=== PATIENT | female | born 1970 | race Caucasian/White ===

== ENCOUNTER → 2019-03-27 13:52 | Outpatient (CLI) | payer OTHER, SELFPAY ==
--- NOTE | 2019-03-27 | DI.CT.S_ITS ---
PROCEDURE: CT ABDOMEN PELVIS WO CON INDICATIONS: Left lower abdominal pain TECHNIQUE: After the administration of oral contrast, 5 mm thick sections acquired from the diaphragms to the symphysis. 5 mm coronal and sagittal reformats were performed. For radiation dose reduction, the following was used: automated exposure control, adjustment of mA and/or kV according to patient size. COMPARISON: None. FINDINGS: Image quality: Excellent. ABDOMEN: Lung bases: Lung bases are clear. Heart size is normal. Solid organs: Noncontrast evaluation of the liver demonstrates no focal hepatic lesions. Gallbladder appears within normal limits without calcified gallstones. Pancreas is normal in contours without peripancreatic fat stranding or fluid collections. Spleen is normal in size. No adrenal nodules. Kidneys demonstrate no hydronephrosis. There is a small focus of cortical calcification medially in the left kidney measuring up to approximately 5 mm which may represent a nonobstructing stone or dystrophic calcification. Peritoneum and bowel: Small bowel loops demonstrate normal wall thickness and caliber. There is colonic diverticulosis. There is minimal associated peridiverticular inflammatory fat stranding along the distal descending colon with trace fluid in the left paracolic gutter. Findings are compatible with mild diverticulitis. No associated loculated fluid collection or macroscopic free air. Minimal free fluid is also demonstrated within the pelvis which appears within physiologic limits. Nodes and vessels: No retroperitoneal or mesenteric adenopathy by size criteria. Aorta and inferior vena cava are normal in size. Miscellaneous: No ventral hernias. PELVIS: Genitourinary: The urinary bladder is nondistended. The uterus and ovaries appear within normal size limits for age. There's a small amount of endometrial fluid which appears within physiologic limits. Miscellaneous: No inguinal hernias or adenopathy. Bones: No suspicious bony lesions. No vertebral body compression fractures. IMPRESSION: 1. Mild diverticulitis of the distal descending colon. No evidence of diverticular abscess or macroscopic free air. Findings discussed with Dr. Sheppard on 03/27/19 at 4:10 PM. 2. Small focus of calcification in the left kidney consistent with a nonobstructing stone or dystrophic cortical calcification. Dictated by: Maciel Fernandez M.D. on 03/27/2019 at 16:08 Approved by: Maciel Fernandez M.D. on 03/27/2019 at 16:13
[2019-03-27 14:17] LABS: Add Manual Diff / Slide Review NO; Basophils Absolute Auto 100 /uL (0-100); Basophils Percent Auto 0.8 % (0-2); Eosinophils Absolute Auto 0 /uL (0-450); Eosinophils Percent Auto 0.2 % (2-4); Hematocrit 38.3 % (36-46); Hemoglobin 12.6 g/dL (12.0-16.0); Lymphocytes Absolute Auto 1100 /uL (1100-4500); Lymphocytes Percent Auto 10.4 % (25-40); Mean Corpuscular HGB Conc 32.9 % (30-36); Mean Corpuscular Hemoglobin 29.2 PG (26-34); Mean Corpuscular Volume 88.6 fL (80-100); Monocytes Absolute Auto 600 /uL (0-900); Monocytes Percent Auto 5.8 % (3-14); Neutrophils Absolute Auto 8800 /uL (1500-7000); Neutrophils Percent Auto 82.8 % (50-75); Platelet Count 249 X10^3/uL (150-400); Red Blood Cell Count 4.32 X10^6/uL (4.0-5.2); Red Cell Distribution Width 16.2 % (11.6-14.8); White Blood Cell Count 10.6 X10^3/uL (4.5-11.0)
== END ==
PROVIDERS: PCP Family Medicine; Visit Provider Family Medicine
DX: R10.32 Left lower quadrant pain (principal); K57.32 Diverticulitis of large intestine without perforation or abscess without bleeding; N20.0 Calculus of kidney
CPT/HCPCS: 36415; 74176; 85025

== ENCOUNTER 2019-06-27 17:49 | Emergency (ER) | payer OTHER, SELFPAY ==
[2019-06-27 17:52] VITALS: BP 132/75; PULSE 91; RESP 16; TEMP 37.2; O2SAT 96; BMI 19.1
[2019-06-27 18:27] LABS: Add Manual Diff / Slide Review NO; Basophils Absolute Auto 100 /uL (0-100); Basophils Percent Auto 1.3 % (0-2); Eosinophils Absolute Auto 100 /uL (0-450); Eosinophils Percent Auto 1.1 % (2-4); Hematocrit 38.7 % (36-46); Hemoglobin 12.7 g/dL (12.0-16.0); Lymphocytes Absolute Auto 1800 /uL (1100-4500); Lymphocytes Percent Auto 23.3 % (25-40); Mean Corpuscular HGB Conc 32.9 % (30-36); Mean Corpuscular Hemoglobin 30.5 PG (26-34); Mean Corpuscular Volume 92.5 fL (80-100); Monocytes Absolute Auto 700 /uL (0-900); Monocytes Percent Auto 9.1 % (3-14); Neutrophils Absolute Auto 5000 /uL (1500-7000); Neutrophils Percent Auto 65.2 % (50-75); Platelet Count 243 X10^3/uL (150-400); Red Blood Cell Count 4.18 X10^6/uL (4.0-5.2); Red Cell Distribution Width 16.4 % (11.6-14.8); White Blood Cell Count 7.6 X10^3/uL (4.5-11.0)
--- NOTE | 2019-06-27 18:28 | ED_ITS ---
HPI - Weakness <MICHELL Manzo - Last Filed: 06/27/19 21:45> General Chief complaint: Weakness Stated complaint: shakey, dizzy, said heavy period Time Seen by Provider: 06/27/19 18:02 Source: patient Mode of arrival: Ambulatory History of Present Illness HPI Narrative: 48 year old female with a presents to the emergency department complaining of weakness and shaking after being sick for a month. Patient st ates she originally developed fatigue about 3-4 weeks ago, developed a dry cough orally, and started to feel better but then started her menstruation. Which she thinks ?worsened my immune system ?. She states she started her period about 10 days ago, bleeding only lasted for 6 days. She did have heavy bleeding the 1st 1-2 days. She states at 1 point she saturated a tampon after 20 minutes, this only happened once, she has had no bleeding at all for the past 2-3 days. She states this is very usual for her menstruation cycle, occasionally she has heavier periods intermittently. Patient noticed that this week she felt like her heart was beating rapidly. She states today she is feeling much better but wanted to be checked out to be sure. She states last week she started taking iron which has helped. She denies any fevers, chest pain, shortness of breath, syncope, or dizziness. She states she was dizzy in the past but the past few days she has felt better. She denies any abdominal pain, nausea, vomiting, diarrhea, or any other concerns. Patient states ?I would not like a chest x-ray due to the risk of radiation. Related Data Allergies Allergy/AdvReac Type Severity Reaction Status Date / Time UNKNOWN SPINAL ANETHETIC Allergy Unknown Uncoded 06/27/19 18:07 Review of Systems <MICHELL Manzo - Last Filed: 06/27/19 21:45> Review of Systems Narrative: REVIEW OF SYSTEMS: GENERAL: Denies fever or chills. HENT: No head trauma, hearing loss or sore throat. EYES: No loss of vision, double vision, eye pain, or irritation. CARDIOVASCULAR: Complains of heart palpitations, see HPI. RESPIRATORY: No shortness of breath. Of cough, see HPI GASTROINTESTINAL: No vomiting, diarrhea, or constipation. GENITOURINARY: No flank pain or dysuria. MUSCULOSKELETAL: No injuries. INTEGUMENTARY: No rash, lesions, or pruritus. NEURO: No numbness, tingling, memory loss, or confusion. PSYCH: No behavior or mood changes. Patient History <Johnna Dickinson CLASSIFYING MACHINE OPERATOR - Last Filed: 06/27/19 21:45> Social History Smoking Status: Never smoker Smoking Status: Never smoker Alcohol type: wine Substance Use Type: does not use Exam <MICHELL Manzo - Last Filed: 06/27/19 21:45> Initial Vital Signs Initial Vital Signs: Vital Signs Temperature 98.9 F 06/27/19 17:52 Pulse Rate 91 H 06/27/19 17:52 Respiratory Rate 16 06/27/19 17:52 Blood Pressure 132/75 06/27/19 17:52 Pulse Oximetry 96 06/27/19 17:52 PHYSICAL EXAMINATION: GENERAL: Well groomed, alert, and cooperative. Answers questions promptly and appropriately. Vital signs noted. HENT: Normocephalic, atraumatic. Ear canals patent. Oral mucosa is pink and moist. EYES: Conjunctiva pink, sclera white, no periorbital swelling. CHEST: Normal to inspection and without deformities. CARDIOVASCULAR: S1 and S2 sounds normal. Regular rate and rhythm, no murmurs, clicks, or bruits. No pedal edema. RESPIRATORY: Normal respiratory rate, trachea midline, airway patent. No stridor, nasal flaring or accessory muscle use. Lungs are clear in all maaya without wheeze, rhonchi, or crackles. Occasional dry cough noted throughout examination GASTROINTESTINAL: Bowel sounds normoactive. Abdomen is soft and non-tender. No organomegaly. MUSCULOSKELETAL: Normal gait and coordination. Equal tone and mass bilaterally. EXTREMITIES: CMS intact. Moves all extremities. SKIN: Warm, dry, soft, appropriate color for ethnicity. No lesions, rashes, or wounds. NEURO: Alert and Oriented X 3. Good coordination. No ataxia, or sensory deficits, or cognitive issues. PSYCH: Appropriate affect and mood. <Raffy Taylor MD - Last Filed: 06/28/19 02:34> Initial Vital Signs Initial Vital Signs: Vital Signs Temperature 98.9 F 06/27/19 17:52 Pulse Rate 91 H 06/27/19 17:52 Respiratory Rate 16 06/27/19 17:52 Blood Pressure 132/75 06/27/19 17:52 Pulse Oximetry 96 06/27/19 17:52 Course <MICHELL Manzo - Last Filed: 06/27/19 21:45> Course Course Narrative: Patient declined chest x-ray. Patient states she was feeling better after administration of fluids. Orders Ordered: ED Orders 06/27/19 18:20 Complete Blood Count AUTO DIFF Stat Comprehensive Metabolic Panel Stat Troponin & CK Cardiac Panel Stat 06/27/19 18:27 EKG-12 Lead Stat Discontinued Medications Sodium Chloride (Normal Saline 0.9%) 1,000 mls @ 1,000 mls/hr IV BOLUS ONE Stop: 06/27/19 19:27 Last Infusion: 06/27/19 20:16 Dose: 0 mls/hr Documented by: Admin: 06/27/19 19:01 Dose: 1,000 mls/hr Documented by: RYAN Consultations Consultation #1: Patient staffed with Dr. Taylor, discussed history, tests, and results. Patient DCed with follow-up. Vital Signs Vital signs: Vital Signs - 8 hr 06/27/19 17:52 Temperature 98.9 F Pulse Rate 91 H Respiratory Rate 16 Blood Pressure 132/75 Pulse Oximetry 96 <Raffy Taylor MD - Last Filed: 06/28/19 02:34> Orders Ordered: ED Orders 06/27/19 18:20 Complete Blood Count AUTO DIFF Stat Comprehensive Metabolic Panel Stat Troponin & CK Cardiac Panel Stat 06/27/19 18:27 EKG-12 Lead Stat Discontinued Medications Sodium Chloride (Normal Saline 0.9%) 1,000 mls @ 1,000 mls/hr IV BOLUS ONE Stop: 06/27/19 19:27 Last Infusion: 06/27/19 20:16 Dose: 0 mls/hr Documented by: Admin: 06/27/19 19:01 Dose: 1,000 mls/hr Documented by: RYAN Vital Signs Vital signs: Vital Signs - 8 hr 06/27/19 17:52 Temperature 98.9 F Pulse Rate 91 H Respiratory Rate 16 Blood Pressure 132/75 Pulse Oximetry 96 MDM - Weakness <MICHELL Manzo - Last Filed: 06/27/19 21:45> Medical Records Attestation: I reviewed the patient's medical records. Lab Data Attestation: I reviewed the patient's lab results. Result diagrams: 06/27/19 18:20 06/27/19 18:20 Labs: Lab Results 06/27/19 06/27/19 06/27/19 Range/Units 18:20 18:20 18:20 WBC 7.6 (4.5-11.0) X10^3/uL RBC 4.18 (4.0-5.2) X10^6/uL Hgb 12.7 (12.0-16.0) g/dL Hct 38.7 (36-46) % MCV 92.5 (80-100) fL MCH 30.5 (26-34) PG MCHC 32.9 (30-36) % RDW 16.4 H (11.6-14.8) % Plt Count 243 (150-400) X10^3/uL Neut % (Auto) 65.2 (50-75) % Lymph % (Auto) 23.3 L (25-40) % [place] % (Auto) 9.1 (3-14) % Eos % (Auto) 1.1 L (2-4) % Baso % (Auto) 1.3 (0-2) % Neut # (Auto) 5000 (1095-4284) /uL Lymph # (Auto) 1800 (1453-7618) /uL [place] # (Auto) 700 (0-900) /uL Eos # (Auto) 100 (0-450) /uL Baso # (Auto) 100 (0-100) /uL Sodium 139 (137-145) mmol/L Potassium 3.7 (3.4-5.1) mmol/L Chloride 101 (98-107) mmol/L Carbon Dioxide 29 (22-32) mmol/L BUN 11 (7-17) mg/dL Creatinine 0.51 L (0.52-1.04) mg/dL Estimated GFR > 60.0 (>60) mL/min BUN/Creatinine Ratio 21.6 (6-22) Glucose 110 H (70-100) mg/dL Calcium 10.0 (8.4-10.2) mg/dL Total Bilirubin 0.3 (0.2-1.3) mg/dL AST 23 (14-36) IU/L ALT 12 (<35) IU/L Alkaline Phosphatase 58 (38-126) U/L Total Creatine Kinase 21 L (30-135) U/L CK-MB (CK-2) TNP CK-MB (CK-2) Rel Index TNP Troponin I < 0.012 (0.01-0.034) ng/mL Total Protein 7.8 (6.3-8.2) g/dL Albumin 4.9 (3.5-5.0) g/dL Globulin 2.9 (1.7-4.1) g/dL Albumin/Globulin Ratio 1.7 (1.0-2.8) Point of Care Testing Test Results Negative Urine Dip Bedside Urine Glucose Negative Bedside Urine Bilirubin - Negative Bedside Urine Ketone - Negative Urine Specific [place] 1.015 Bedside Urine Occult Blood - Negative Bedside Urine pH 6.2 Bedside Urine Protein - Negative Bedside Urine Urobilinogen - Negative Bedside Urine Nitrite - Negative Bedside Urine Leukocytes - Negative Esterase ECG Data Interpretation: Normal sinus rhythm, rate 74, MA interval 162, QTC 396. No ST elevation or ST depression. No T-wave abnormality. No ectopy. EKG was also v iewed by Dr. Taylor. [facility] Narrative Medical decision making narrative: 48yo female with a history of anemia and heavy menstrual bleeding presenting to the ED for weakness, shaking, and palpitation after being sick for about a month. Patient also reports she had a heavy menstrual cycle last week which has ended a few days without. Patient states she is feeling much better today but wanted to be checked out. I am unsu re the exact cause of her symptoms, I suspect this is most likely due to previous illness and her body recuperating. She may also be dehydrated causing which she feels as palpitations or increased heart rate with exertion. However, EKG is within normal limits without arrhythmia, patient was monitored throughout the emergency department stay and no arrhythmia was seen on the monitors. Troponin is negative, withdrawal eats are within normal limits, and patient's hematocrit and hemoglobin are non-remarkable. No indication of infection as wbc's are within normal limits and urine is non-remarkable. Due to cough, I a attempted to get a chest x-ray. Patient declined at this time to reduce rad iation exposure, I feel like this is appropriate as her lung exam was benign without crackles or wheezes. Patient did states she felt better after rehydration with normal saline. She was encouraged to continue drinking fluids and taking her iron as prescribed. Follow-up was encouraged in the next week. Strict ED return precautions were given. Patient agreed to plan of care verbalized understanding. <Raffy Taylor MD - Last Filed: 06/28/19 02:34> Lab Data Labs: Lab Results 06/27/19 06/27/19 06/27/19 Range/Units 18:20 18:20 18:20 WBC 7.6 (4.5-11.0) X10^3/uL RBC 4.18 (4.0-5.2) X10^6/uL Hgb 12.7 (12.0-16.0) g/dL Hct 38.7 (36-46) % MCV 92.5 (80-100) fL MCH 30.5 (26-34) PG MCHC 32.9 (30-36) % RDW 16.4 H (11.6-14.8) % Plt Count 243 (150-400) X10^3/uL Neut % (Auto) 65.2 (50-75) % Lymph % (Auto) 23.3 L (25-40) % [place] % (Auto) 9.1 (3-14) % Eos % (Auto) 1.1 L (2-4) % Baso % (Auto) 1.3 (0-2) % Neut # (Auto) 5000 (2942-1268) /uL Lymph # (Auto) 1800 (1309-1760) /uL [place] # (Auto) 700 (0-900) /uL Eos # (Auto) 100 (0-450) /uL Baso # (Auto) 100 (0-100) /uL Sodium 139 (137-145) mmol/L Potassium 3.7 (3.4-5.1) mmol/L Chloride 101 (98-107) mmol/L Carbon Dioxide 29 (22-32) mmol/L BUN 11 (7-17) mg/dL Creatinine 0.51 L (0.52-1.04) mg/dL Estimated GFR > 60.0 (>60) mL/min BUN/Creatinine Ratio 21.6 (6-22) Glucose 110 H (70-100) mg/dL Calcium 10.0 (8.4-10.2) mg/dL Total Bilirubin 0.3 (0.2-1.3) mg/dL AST 23 (14-36) IU/L ALT 12 (<35) IU/L Alkaline Phosphatase 58 (38-126) U/L Total Creatine Kinase 21 L (30-135) U/L CK-MB (CK-2) TNP CK-MB (CK-2) Rel Index TNP Troponin I < 0.012 (0.01-0.034) ng/mL Total Protein 7.8 (6.3-8.2) g/dL Albumin 4.9 (3.5-5.0) g/dL Globulin 2.9 (1.7-4.1) g/dL Albumin/Globulin Ratio 1.7 (1.0-2.8) Point of Care Testing Test Results Negative Urine Dip Bedside Urine Glucose Negative Bedside Urine Bilirubin - Negative Bedside Urine Ketone - Negative Urine Specific [place] 1.015 Bedside Urine Occult Blood - Negative Bedside Urine pH 6.2 Bedside Urine Protein - Negative Bedside Urine Urobilinogen - Negative Bedside Urine Nitrite - Negative Bedside Urine Leukocytes - Negative Esterase Discharge Plan Departure Patient Disposition: Home Clinical Impression: Heart palpitations Discharge Date/Time: 06/27/19 20:17 Instructions: DI for Dehydration -- Adult Referrals: Nohemi Sheppard MD [Primary Care Provider] -
[2019-06-27 18:38] LABS: Alanine Aminotransferase 12 IU/L (<35); Albumin 4.9 g/dL (3.5-5.0); Albumin Globulin Ratio 1.7 (1.0-2.8); Alkaline Phosphatase 58 U/L (38-126); Aspartate Aminotransferase 23 IU/L (14-36); BUN Creatinine Ratio 21.6 (6-22); Bilirubin Total 0.3 mg/dL (0.2-1.3); Blood Urea Nitrogen 11 mg/dL (7-17); Carbon Dioxide 29 mmol/L (22-32); Chloride 101 mmol/L (98-107); Estimated Glomerular Filt Rate > 60.0 mL/min (>60); Globulin 2.9 g/dL (1.7-4.1); Glucose 110 mg/dL (70-100); HEMOLYSIS < 15 (0-50); Potassium 3.7 mmol/L (3.4-5.1); Sodium 139 mmol/L (137-145); Total Protein 7.8 g/dL (6.3-8.2)
[2019-06-27 18:45] LABS: Creatine Kinase 21 U/L (30-135)
[2019-06-27 18:58] LABS: Troponin I < 0.012 ng/mL (0.01-0.034)
[2019-06-27] MEDS: SODIUM CHLORIDE 0.9% 1,000 ML 1000 ML IV (19:01)
== END 2019-06-27 20:17 | disposition home or self-care (01) ==
PROVIDERS: Emergency Provider Nurse Practitioner; PCP Family Medicine
DX: R00.2 Palpitations (principal); D64.9 Anemia, unspecified; N92.0 Excessive and frequent menstruation with regular cycle; R05 Cough
CPT/HCPCS: 36415; 80053; 81003; 81025; 82550; 84484; 85025; 93005; 96360; 99284

== ENCOUNTER → 2023-05-31 16:40 | Outpatient (CLI) | payer OTHER, SELFPAY ==
[2023-05-31 17:24] LABS: Add Manual Diff / Slide Review NO; Basophils Absolute Auto 100 /uL (0-100); Basophils Percent Auto 2.4 % (0-2); Eosinophils Absolute Auto 100 /uL (0-450); Eosinophils Percent Auto 1.8 % (2-4); Hematocrit 37.3 % (36-46); Hemoglobin 12.8 g/dL (12.0-16.0); Lymphocytes Absolute Auto 1800 /uL (1100-4500); Lymphocytes Percent Auto 32.5 % (25-40); Mean Corpuscular HGB Conc 34.2 % (30-36); Mean Corpuscular Hemoglobin 32.6 PG (26-34); Mean Corpuscular Volume 95.4 fL (80-100); Monocytes Absolute Auto 600 /uL (0-900); Monocytes Percent Auto 10.9 % (3-14); Neutrophils Absolute Auto 2800 /uL (1500-7000); Neutrophils Percent Auto 52.4 % (50-75); Platelet Count 214 X10^3/uL (150-400); Red Blood Cell Count 3.91 X10^6/uL (4.0-5.2); White Blood Cell Count 5.4 X10^3/uL (4.5-11.0)
[2023-05-31 17:25] LABS: HEMOLYSIS < 15 (0-50); Iron 108 ug/dL (37-170)
[2023-05-31 17:27] LABS: Alanine Aminotransferase 16 IU/L (<35); Albumin 4.3 g/dL (3.5-5.0); Albumin Globulin Ratio 1.5 (1.0-2.8); Alkaline Phosphatase 59 U/L (38-126); Aspartate Aminotransferase 26 IU/L (14-36); Bilirubin Total 0.4 mg/dL (0.2-1.3); Blood Urea Nitrogen 6 mg/dL (7-17); Calcium 9.2 mg/dL (8.4-10.2); Carbon Dioxide 29 mmol/L (22-32); Chloride 106 mmol/L (98-107); Estimated Glomerular Filt Rate > 60 mL/min (>60); Globulin 2.8 g/dL (1.7-4.1); Glucose 94 mg/dL (70-100); HEMOLYSIS < 15 (0-50); Potassium 3.9 mmol/L (3.4-5.1); Sodium 138 mmol/L (137-145); Total Protein 7.1 g/dL (6.3-8.2)
[2023-05-31 17:29] LABS: Hemoglobin A1C% w Est Avg Glu 5.1 % (4.0-6.0)
[2023-05-31 17:35] LABS: Percent Iron Saturation 38 % (15-50); Total Iron Binding Capacity 286 ug/dL (265-497); Transferrin 247 mg/dL (206-381)
[2023-05-31 17:44] LABS: Vitamin D 25 Hydroxy (D3) 46.2 ng/mL (30.0-100.0)
[2023-05-31 17:58] LABS: TSH w/ Reflex to FT4 0.89 uIU/mL (0.47-4.68)
[2023-05-31 18:01] LABS: Ferritin 12 ng/mL (11-264)
[2023-05-31 18:15] LABS: Vitamin B12 719 pg/mL (239-931)
[2023-06-05 19:47] LABS: Vitamin B6 33.5 ug/L (3.4-65.2)
== END ==
PROVIDERS: PCP Family Medicine; Referring Provider Family Medicine; Visit Provider Family Medicine
DX: R20.2 Paresthesia of skin (principal); D64.9 Anemia, unspecified; E53.1 Pyridoxine deficiency; E55.9 Vitamin D deficiency, unspecified; R63.4 Abnormal weight loss
CPT/HCPCS: 36415; 80053; 82306; 82607; 82728; 83036; 83540; 83550; 84207; 84443; 85025

== ENCOUNTER 2023-06-13 03:32 | Emergency (ER) | payer OTHER, SELFPAY ==
[2023-06-13 03:44] VITALS: BP 167/78; PULSE 73; RESP 17; TEMP 36.4; O2SAT 100; BMI 19.5
--- NOTE | 2023-06-13 03:49 | ED.ARRPALP ---
HPI - Arrhythmia/Palpitations General Chief Complaint: Arrhythmia/Palpitations Stated Complaint: palpatations Time Seen by Provider: 06/13/23 03:34 Source: patient Mode of arrival: Ambulatory History of Present Illness HPI narrative: Patient is a 52-year-old female. Has had issues with palpitations for some time now. Has seen her primary care doctor. Has a ZIO patch ordered. Has yet to fill this order secondary to an issue with deductible. Is here for evaluation of the palpitations. During the time of the palpitations she does not have chest pain or shortness of breath or lightheadedness. She states it does get somewhat worse when she is lying down. Right now she states she has not really having much symptoms. She just had labs drawn proximally 2 weeks ago. Related Data Home Medications Medication Instructions Recorded Confirmed No Known Home Medications 10/09/21 05/19/23 Allergies Allergy/AdvReac Type Severity Reaction Status Date / Time UNKNOWN SPINAL ANETHETIC Allergy Unknown Uncoded 05/19/23 15:51 Review of Systems Constitutional Constitutional: Reports system reviewed and no additional complaints, except as documented Cardiovascular Cardiovascular: Reports system reviewed and no additional complaints, except as documented Respiratory Respiratory: Reports system reviewed and no additional complaints, except as documented Integumentary/Breasts Skin/Breast: Reports system reviewed and no additional complaints, except as documented Patient History Medical History Anxiety Restless leg syndrome Headache ADHD Shoulder pain Scoliosis Vertigo Ovarian cyst Heavy menstrual period Kidney stones Diverticular disease (~2019) Palpitations Tinnitus Hypovitaminosis D Anemia Surgical History (Updated 06/01/23 @ 20:07 by Sahara Logan) Anesthesia History of dilatation and curettage (~2001) Family History (Updated 06/01/23 @ 20:10 by Sahara Logan) Father Cirrhosis Mother Cirrhosis Congestive heart failure Sister History of IBS Grandfather Pancreas disorder Diabetes mellitus History of heart disease Grandfather History of emphysema Grandmother Cancer Social History Smoking Status: Never smoker Smoking Status: Never smoker Alcohol type: wine Substance Use Type: does not use Exam Initial Vital Signs Initial Vital Signs: Vital Signs Temperature 97.5 F L 06/13/23 03:44 Pulse Rate 73 06/13/23 03:44 Respiratory Rate 17 03/25/24 03:44 Blood Pressure 167/78 H 06/13/23 03:44 Pulse Oximetry 100 06/13/23 03:44 Oxygen Delivery Method Room Air 06/13/23 03:44 Const General: cooperative, comfortable and No ill appearing HENMT Head: normal to inspection and normocephalic Resp Effort & Inspection: normal respiratory effort Auscultation: clear to auscultation bilaterally Cardio Rate: regular rate Rhythm: regular rhythm Neuro General: patient alert, patient awake, patient oriented x3 and moves all extremities Course Orders Ordered: ED Orders 06/13/23 03:36 EKG-12 Lead Stat Vital Signs Vital signs: Vital Signs - 8 hr 06/13/23 03:44 Temperature 97.5 F L Pulse Rate 73 Respiratory Rate 17 Blood Pressure 167/78 H Pulse Oximetry 100 Oxygen Delivery Method Room Air MDM - Arrhythmia/Palpitations Medical Records Attestation: I reviewed the patient's medical records. ECG Data Attestation: I personally reviewed and interpreted this ECG as follows: Interpretation: Sinus rhythm Ventricular rate is 67 Normal axis Normal QRS Normal QTC No ST T wave changes MDM Narrative Medical decision making narrative: Patient has a normal rate and rhythm on the EKG. She states that her symptoms actually improved from when they were at their worst earlier this evening. She just had labs drawn 2 weeks ago. She had really not like to have labs drawn again today. I feel that this is not unreasonable. Review of her medical record shows that her labs are relatively unremarkable. It is important that she get the ZIO patch. I did discuss this with her. No further workup required in the ER. Advised that she contact her primary doctor for follow-up. She expressed understanding agreement. Discharge Plan Departure Patient Disposition: Home Clinical Impression: Palpitations Instructions: DI for Palpitations Activity Restrictions/Additional Instructions: Recommend that you continue any medications as directed. It is important that you get the ZIO patch so that we can monitor you for extended periods of time to see if we can catch any abnormal heart rate or rhythm. Contact your primary care doctor for a follow-up. Return to the emergency department for chest pain, lightheadedness, shortness of breath or if the palpitations are not resolving in a reasonable amount of time. Prescriptions: No Action No Known Home Medications Referrals: Triny Benjamin MD [Primary Care Provider] - Stand Alone Forms: Patient Portal/API
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
== END 2023-06-13 04:00 | disposition home or self-care (01) ==
PROVIDERS: Emergency Provider Emergency Medicine; PCP Family Medicine
DX: R00.2 Palpitations (principal)
CPT/HCPCS: 93005; 99281; 99283

== ENCOUNTER → 2023-06-15 13:45 | Outpatient (CLI) | payer OTHER, SELFPAY | LOC: CAR 13:46 | PROVIDERS: PCP Family Medicine; Referring Provider Family Medicine; Visit Provider Family Medicine | DX: R00.2 Palpitations (principal); I48.91 Unspecified atrial fibrillation; I48.92 Unspecified atrial flutter; D64.9 Anemia, unspecified | CPT/HCPCS: 93242 ==